=== PATIENT | male | born 1975 | race Caucasian/White ===

== ENCOUNTER 2022-06-30 17:36 | Outpatient (REF) | payer MEDICAID, SELFPAY ==
[2022-06-30 17:27] LABS: HCT 41.7 % (40.0-50.0); HGB 13.9 g/dL (13.5-17.5); MCH 29.9 pg (27.0-33.0); MCHC 33.3 % (32.0-36.0); MCV 90 fL (80-95); Platelet Count 337 10^3/uL (130-400); RBC 4.65 10^6/uL (4.36-5.78); RDW 12.4 % (11.8-14.1); RDW-SD 40.6 fL; WBC 5.87 10^3/uL (4.4-10.8)
[2022-06-30 18:00] LABS: ALT 25 U/L (16-63); AST 23 U/L (15-37); Albumin 4.2 g/dL (3.4-5.0); Alkaline Phosphatase 102 U/L (46-116); Anion Gap 9.2 mmol/L (3-11); BUN 15 mg/dL (7-18); Bilirubin, Total 0.4 mg/dL (0.2-1.0); CO2 27.8 mmol/L (21.0-32.0); CREATININE 1.2 mg/dL (0.70-1.30); Calcium 9.3 mg/dL (8.5-10.1); Calculated LDL 165 mg/dL (<100); Chloride 101 mmol/L (98-107); Cholesterol 219 mg/dL (<200); Estimated GFR 75.53 (mL/min/1.73m2); Glucose 94 mg/dL (74-106); HDL Cholesterol 40 mg/dL (40-60); Potassium 3.6 mmol/L (3.5-5.1); Sodium 138 mmol/L (136-145); Total Protein 7.4 g/dL (6.4-8.2); Triglyceride 72 mg/dL (<150)
[2022-06-30 18:01] LABS: Hemoglobin A1C 5.6 % (<5.7)
[2022-07-02 10:30] LABS: Hepatitis C Ab w Rflx HCV PCR Negative (Negative)
[2022-07-02 10:51] LABS: HIV-1/2 Ag & Ab Screen Negative (Negative)
== END 2022-06-30 17:37 | disposition home or self-care (01) ==
LOC: NCHCN 17:36
PROVIDERS: PCP Nurse Practitioner Family; Visit Provider Nurse Practitioner Family
DX: I10 Essential (primary) hypertension (principal); Z11.3 Encounter for screening for infections with a predominantly sexual mode of transmission; Z51.81 Encounter for therapeutic drug level monitoring; Z13.220 Encounter for screening for lipoid disorders; Z11.4 Encounter for screening for human immunodeficiency virus [HIV]
CPT/HCPCS: 80053; 80061; 85027; 86803; 87389; 83036; 84146

== ENCOUNTER 2023-10-19 13:43 | Outpatient (REF) | payer MEDICAID, SELFPAY ==
[2023-10-19 14:49] LABS: HCT 45.6 % (40.0-50.0); HGB 15.3 g/dL (13.5-17.5); MCH 30.2 pg (27.0-33.0); MCHC 33.6 % (32.0-36.0); MCV 90 fL (80-95); MPV 8.7 fL (8.0-11.0); Platelet Count 408 10^3/uL (130-400); RBC 5.07 10^6/uL (4.36-5.78); RDW 13.3 % (11.8-14.1); RDW-SD 43.2 fL; WBC 5.78 10^3/uL (4.4-10.8)
[2023-10-19 15:36] LABS: ALT 42 U/L (16-63); AST 28 U/L (15-37); Albumin 4.1 g/dL (3.4-5.0); Alkaline Phosphatase 105 U/L (46-116); Anion Gap 9.5 mmol/L (3-11); BUN 12 mg/dL (7-18); Bilirubin, Total 0.3 mg/dL (0.2-1.0); CO2 27.5 mmol/L (21.0-32.0); CREATININE 1.4 mg/dL (0.70-1.30); Calcium 9.4 mg/dL (8.5-10.1); Calculated LDL 205 mg/dL (<100); Chloride 105 mmol/L (98-107); Cholesterol 261 mg/dL (<200); Estimated GFR 62.39 (mL/min/1.73m2); Glucose 76 mg/dL (74-106); HDL Cholesterol 49 mg/dL (40-60); Potassium 4.1 mmol/L (3.5-5.1); Sodium 142 mmol/L (136-145); TSH (W/Ref FT4) 1.19 uIU/mL (0.36-3.74); Total Protein 7.9 g/dL (6.4-8.2); Triglyceride 36 mg/dL (<150)
[2023-10-19 15:48] LABS: Hemoglobin A1C 5.8 % (<5.7)
== END 2023-10-19 13:44 | disposition home or self-care (01) ==
LOC: NCHCN 13:43
PROVIDERS: PCP Nurse Practitioner Family; Visit Provider Nurse Practitioner Family
DX: Z51.81 Encounter for therapeutic drug level monitoring (principal)
CPT/HCPCS: 80053; 80061; 85027; 83036; 84443

== ENCOUNTER 2024-09-12 20:14 | Outpatient (REF) | payer SELFPAY ==
[2024-09-12 21:21] LABS: HGB 14.3 g/dL (13.5-17.5); MCH 29.8 pg (27.0-33.0); MCHC 33.3 % (32.0-36.0); MCV 90 fL (80-95); MPV 8.7 fL (8.0-11.0); Platelet Count 504 10^3/uL (130-400); RDW 12.6 % (11.8-14.1); RDW-SD 41.1 fL; WBC 8.21 10^3/uL (4.4-10.8)
[2024-09-12 21:40] LABS: Hemoglobin A1C 5.8 % (<5.7)
[2024-09-12 21:41] LABS: ALT 32 U/L (16-63); AST 25 U/L (15-37); Albumin 3.9 g/dL (3.4-5.0); Alkaline Phosphatase 116 U/L (46-116); Anion Gap 8.1 mmol/L (3-11); BUN 6 mg/dL (7-18); Bilirubin, Total 0.42 mg/dL (0.2-1.0); CO2 29.9 mmol/L (21.0-32.0); CREATININE 1.4 mg/dL (0.70-1.30); Calcium 9.3 mg/dL (8.5-10.1); Calculated LDL 77 mg/dL (<100); Chloride 103 mmol/L (98-107); Cholesterol 126 mg/dL (<200); Glucose 75 mg/dL (74-106); HDL Cholesterol 38 mg/dL (40-60); Sodium 141 mmol/L (136-145); TSH (W/Ref FT4) 0.94 uIU/mL (0.36-3.74); Total Protein 7.7 g/dL (6.4-8.2); Triglyceride 56 mg/dL (<150)
== END 2024-09-12 20:15 | disposition home or self-care (01) ==
LOC: NCHCN 20:14
PROVIDERS: PCP Nurse Practitioner Family; Visit Provider Nurse Practitioner Family
DX: F31.9 Bipolar disorder, unspecified (principal); E78.5 Hyperlipidemia, unspecified
CPT/HCPCS: 80053; 80061; 85027; 83036; 84443

== ENCOUNTER 2024-10-17 14:47 | Outpatient (REF) | payer SELFPAY ==
[2024-10-17 21:14] LABS: HCT 43.4 % (40.0-50.0); HGB 14.5 g/dL (13.5-17.5); MCH 29.7 pg (27.0-33.0); MCHC 33.4 % (32.0-36.0); MCV 89 fL (80-95); MPV 9.3 fL (8.0-11.0); Platelet Count 329 10^3/uL (130-400); RBC 4.88 10^6/uL (4.36-5.78); RDW 13.2 % (11.8-14.1); RDW-SD 42.7 fL; WBC 6.63 10^3/uL (4.4-10.8)
[2024-10-17 21:20] LABS: BUN 9 mg/dL (7-18); CREATININE 1.3 mg/dL (0.70-1.30); Chloride 103 mmol/L (98-107); Estimated GFR 67.76 (mL/min/1.73m2); Glucose 95 mg/dL (74-106); Potassium 3.7 mmol/L (3.5-5.1); Sodium 140 mmol/L (136-145)
== END 2024-10-17 14:48 | disposition home or self-care (01) ==
LOC: NCHCN 14:47
PROVIDERS: PCP Nurse Practitioner Family; Visit Provider Nurse Practitioner Family
DX: I10 Essential (primary) hypertension (principal)
CPT/HCPCS: 80048; 85027